=== PATIENT | male | born 1990 | race Two or more races ===

== ENCOUNTER 2018-09-04 08:59 | Emergency (ER) | payer OTHER ==
[2018-09-04 09:05] VITALS: BP 124/76
[2018-09-04] MEDS ORDERED: TDAP ADULT 0.5 ML INJ (BOOSTRIX) IM ONE (09:09)
--- NOTE | 2018-09-04 09:52 | EDPHY ---
H & P Time Seen by Provider: 09/04/18 09:14 HPI/ROS: CLINICAL IMPRESSION: Left 3rd finger laceration ASSESSMENT/PLAN: 28-year-old [id number] male presents to the emergency department the laceration to the left 3rd finger sustained on a kitchen knife while at work today. Patient has full range of motion of the finger. Distal 2 point discrimination and neurovascular exam is intact. No clinical evidence to suggest flexor tendon injury, deep vascular injury, foreign body or fracture. Digital block placed in finger was irrigated, cleaned, and repaired as per chart notes. Wound care discussed, sinus symptoms of infection reviewed, warning signs return to ED outlined discharge. DIFFERENTIAL DIAGNOSIS: includes but not limited to laceration of tendon or vascular structure, underlying fracture, laceration with retained FB ED PROCECURES: Laceration Repair Verbal consent obtained by patient. Risks discussed, including but not limited to infection, pain, retained foreign body, need for additional repair, poor cosmetic result, tendon damage, nerve damage, poor wound healing, vascular damage. Alternatives to repair discussed. [place] protocol used to establish correct patient, procedure, equipment, user support analyst, and site. Anesthesia obtained by nerve block at left 3rd MCP joint. Anesthetized with 0.5% bupivacaine without epinephrine. Laceration location left 3rd finger, length 1.5 cm, depth 3 mm, Repair type simple. Patient was prepped and draped in usual sterile fashion. Hemostasis achieved with direct pressure. Wound explored through full range of motion and entire depth of wound probed and visualized with gloved finger. No suspicion for nerve damage, tendon damage, underlying fracture, vascular damage, foreign body, or contamination. Area was cleansed with Shur-Clens and irrigated with sterile saline as per protocol. No foreign body or material removed. Repair method 5 0 Prolene sutures simple interrupted. Five sutures placed. Well aligned, closely approximated. wound was dressed with bacitracin Band-Aid. Patient tolerated well with no immediate complications. Wound care: Clean and dry x 24 hours, gently clean with soap and water, cover with topical antibiotic ointment/bandage. Suture/Staple removal: 7-10 Days CHIEF COMPLAINT: Laceration HPI: 28-year-old male presents to the emergency department with a laceration to the left for 3rd finger sustained when he was cutting sausage at [employer]. Patient is right-hand dominant. Tetanus is not up-to-date. Full range of motion of the finger. No reported sensory change or weakness. No other injuries PAST MEDICAL HISTORY: None reported Pertinent Past Surgical History: None reported Social History: Everyday smoker, tetanus not up-to-date REVIEW OF SYSTEMS: All other systems negative Constitutional: No fever, no chills Musculoskeletal: No deformity, no joint pain Skin: Laceration to left 3rd finger Neurological: No sensory loss or weakness, 2 point discrimination intact. PHYSICAL EXAM: General Appearance: Alert, oriented, appropriate for age, cooperative, NAD, well hydrated, non-toxic appearing, VSS, no hypoxia. Neurological: Alert and oriented x 3 Skin: 1.5 cm laceration to left 3rd finger at volar surface between the IP and PIP joints. Musculoskeletal: Full range of motion, 2 point discrimination intact, distal neurovascular exam without abnormality. No clinical evidence of flexor tendon injury, fracture, or foreign body MEDICAL DECISION MAKING: Patient was seen independently. Secondary supervising physician at time of evaluation was Dr. Rogel. Diagnosis: Left 3rd finger laceration. New, requires workup Summary: See assessment and plan for summary of ED visit Clinical lab tests: Not obtained. Independent visualization of images, tracing, or specimens not obtained. Patient Progress improved. Smoking Status: Current some day smoker Constitutional: Initial Vital Signs Temperature (C) 36.5 C 09/04/18 09:03 Heart Rate 61 09/04/18 09:03 Respiratory Rate 18 09/04/18 09:03 Blood Pressure 124/76 H 09/04/18 09:03 O2 Sat (%) 97 09/04/18 09:03 O2 Delivery Mode Room Air Allergies/Adverse Reactions: No Known Allergies Allergy (Unverified 09/04/18 09:03) Home Medications: Medication Instructions Recorded NK [No Known Home Meds] 09/04/18 MDM/Departure - MDM Medications Given: Discontinued Medications Diphtheria/Tetanus/Acell Pertussis (Boostrix) 0.5 ml IM .ONCE ONE Stop: 09/04/18 09:10 Last Admin: 09/04/18 09:21 Dose: 0.5 ml - Depart Disposition: Home, Routine, Self-Care Clinical Impression: Finger laceration Qualifiers: Encounter type: initial encounter Finger: middle finger Damage to nail status: without damage Foreign body presence: without foreign body Laterality: left Qualified Code(s): S61.213A - Laceration without foreign body of left middle finger without damage to nail, initial encounter Condition: Good Instructions: Finger Laceration (ED) Additional Instructions: PLEASE HAVE SUTURES/JAMEL REMOVED IN 7-10 DAYS. YOU CAN RETURN TO THE EMERGENCY DEPARTMENT OR YOUR PRIMARY CARE FOR SUTURE/STAPLE REMOVAL. AVOID SUBMERGING SUTURES/JAMEL UNDERWATER FOR PROLONGED PERIOD OF TIME UNTIL REMOVED. KEEP WOUND CLEAN AND DRY, COVER WITH ANTIBIOTIC OINTMENT AND BAND-AID. RETURN TO EMERGENCY DEPARTMENT FOR REDNESS, SWELLING, DISCHARGE, WARMTH TO THE SKIN, OR ANY OTHER CONCERNS FOR INFECTION. POR FAVOR TENGA SUTURAS / GRAPAS EN 7-10 SANCHES. USTED PUEDE REGRESAR AL DEPARTAMENTO DE EMERGENCIA O POLK ATENCIN PRIMARIA PARA EL DESMONTAJE DE SUTURE / STAPLE. EVITE SUTURAS / GRAPAS SUMERGIDAS BAJO EL AGUA POR UN PERODO DE TIEMPO PROLONGADO HASTA ELIMINARLO. MANTENER LA HERIDA LIMPIA Y SECA, CUBRIR CON EL PODER ANTIBIOTICO Y LA JOHNSON DE LA AYUDA. VUELVA AL DEPARTAMENTO DE EMERGENCIA POR ENFERMEDADES, H[place]azn, DESCARGA, CALENTAMIENTO A LA PIEL, O CUALQUIER OTRA PREOCUPACIN POR INFECCIN. . Referrals: NONE *PRIMARY CARE P,. [Primary Care Provider] - As per Instructions Print Language: Montenegrin
== END 2018-09-04 10:20 | disposition home or self-care (01) ==
PROC: 0HQGXZZ Repair Left Hand Skin, External Approach (ICD-10-PCS; principal; 2018-09-04)
DX: S61.213A Laceration without foreign body of left middle finger without damage to nail, initial encounter (principal); Z23 Encounter for immunization; W26.0XXA Contact with knife, initial encounter; Y92.511 Restaurant or cafe as the place of occurrence of the external cause; Y93.G1 Activity, food preparation and clean up; Y99.0 Civilian activity done for income or pay